=== PATIENT | male | born 1950 | race Caucasian/White ===

== ENCOUNTER 2019-02-28 07:11 | Observation (INO) | payer OTHER ==
[2019-02-28 08:42] LABS: ADD MAN DIFF? NO
[2019-02-28 08:45] LABS: WHITE BLOOD COUNT 5.7 10^3/ul (4.8-10.8)
[2019-02-28 08:45] LABS: BASOPHIL # 0.1 10^3/ul (0.0-0.1); BASOPHILS % 0.9 % (0.0-2.0); EOSINOPHILS # 0.1 10^3/ul (0.0-0.5); EOSINOPHILS % 1.2 % (0.0-7.0); HEMATOCRIT 43.8 % (42.0-52.0); HEMOGLOBIN 14.2 g/dl (14.0-18.0); LYMPHOCYTES # 1.6 10^3/ul (0.8-2.9); LYMPHOCYTES % 28.4 % (15.0-51.0); MEAN CORPUSCULAR HEMOGLOBIN 28.5 pg (29.0-33.0); MEAN CORPUSCULAR HGB CONC 32.4 g/dl (32.0-37.0); MEAN PLATELET VOLUME 10.6 fl (7.4-10.4); MONOCYTE # 0.4 10^3/ul (0.3-0.9); MONOCYTES % 6.5 % (0.0-11.0); NEUTROPHIL # 3.6 10^3/ul (1.6-7.5); NEUTROPHILS % 62.6 % (39.0-77.0); PLATELET COUNT 163 10^3/UL (140-415); RED BLOOD COUNT 4.98 10^6/ul (4.70-6.10); RED CELL DISTRIBUTION WIDTH 13.2 % (11.5-14.5)
[2019-02-28 09:02] LABS: ANION GAP 7 (5-13); BLOOD UREA NITROGEN 20 mg/dl (7-20); CALCIUM 9.7 mg/dl (8.4-10.2); CARBON DIOXIDE 28 mmol/L (21-31); CHLORIDE 112 mmol/L (97-110); CHOL/HDL RATIO 7.1 RATIO; CHOLESTEROL 243 mg/dl (100-200); CREATININE 0.95 mg/dl (0.61-1.24); Estimated GFR > 60 mL/min (>60); GLUCOSE 107 mg/dl (70-220); HDL CHOLESTEROL 34 mg/dl (31-75); LDL CHOLESTEROL,CALCULATED 174 mg/dl; POTASSIUM 4.3 mmol/L (3.5-5.1); TRIGLYCERIDES 174 mg/dl (0-149)
[2019-02-28 09:03] LABS: INR 0.89; PROTIME 12.1 Sec (11.9-14.9); PT RATIO 0.9
[2019-02-28 09:04] LABS: PARTIAL THROMBOPLASTIN TIME 26.2 Sec (23.0-35.0)
[2019-02-28 09:09] LABS: SODIUM 147 mmol/L (135-144)
[2019-02-28] MEDS ORDERED: NITROGLYCERIN (IC) 100 MCG/ML INJ (09:15)
[2019-02-28] MEDS ORDERED: VERAPAMIL 5 MG INJ (09:15)
[2019-02-28] MEDS ORDERED: LIDOCAINE 1% (MDV) 20 ML INJ (09:15)
[2019-02-28] MEDS ORDERED: SOD CHLORIDE 0.9% 500 ML (09:15)
[2019-02-28] MEDS ORDERED: HEPARIN 1000 UNITS/ML 10 ML INJ (09:15)
[2019-02-28] MEDS ORDERED: FENTAnyl 50 MCG/ML VIAL (09:15)
[2019-02-28] MEDS ORDERED: IODIXANOL LOCM 100 ML BTL (09:15)
[2019-02-28] MEDS ORDERED: MIDAZOLAM 1 MG/ML 2 ML INJ (09:15)
[2019-02-28] MEDS ORDERED: ASPIRIN 325 MG TAB ×2 (10:53→11:29)
[2019-02-28] MEDS ORDERED: CLOPIDOGREL 300 MG TAB ×2 (10:53→11:30)
[2019-02-28] MEDS ORDERED: niCARdipine 25 MG INJ (11:07)
[2019-02-28] MEDS ORDERED: BIVALIRUDIN 250MG /NS 50 ML 50 ML IVPB (11:40)
[2019-02-28] MEDS ORDERED: ACETAMINOPHEN 325 MG TAB PO (12:00)
[2019-02-28] MEDS ORDERED: OXYCODONE/ACETAMINOPHEN (5/325) TAB PO (12:00)
[2019-02-28] MEDS ORDERED: morphine 2 MG INJ IV (12:00)
[2019-02-28] MEDS ORDERED: AL HYDROX/MG HYDROX/SIMETH 30 ML CUP PO (12:00)
[2019-02-28] MEDS ORDERED: ONDANSETRON 4 MG INJ IV (12:00)
[2019-02-28] MEDS: SOD CHLORIDE 0.9% 1,000 ML IV ×2 (16:41→22:29)
[2019-02-28] MEDS ORDERED: ZOLPIDEM 5 MG TAB PO (21:00)
[2019-03-01 05:05] LABS: ADD MAN DIFF? NO
[2019-03-01 05:13] LABS: WHITE BLOOD COUNT 6.8 10^3/ul (4.8-10.8)
[2019-03-01 05:13] LABS: BASOPHILS % 0.6 % (0.0-2.0); EOSINOPHILS # 0.1 10^3/ul (0.0-0.5); EOSINOPHILS % 0.9 % (0.0-7.0); HEMATOCRIT 42.6 % (42.0-52.0); HEMOGLOBIN 14.1 g/dl (14.0-18.0); LYMPHOCYTES # 1.1 10^3/ul (0.8-2.9); LYMPHOCYTES % 16.9 % (15.0-51.0); MEAN CORPUSCULAR HEMOGLOBIN 28.4 pg (29.0-33.0); MEAN CORPUSCULAR HGB CONC 33.1 g/dl (32.0-37.0); MEAN CORPUSCULAR VOLUME 85.7 fl (82.0-101.0); MEAN PLATELET VOLUME 10.8 fl (7.4-10.4); MONOCYTE # 0.4 10^3/ul (0.3-0.9); MONOCYTES % 6.1 % (0.0-11.0); NEUTROPHIL # 5.1 10^3/ul (1.6-7.5); NEUTROPHILS % 75.2 % (39.0-77.0); PLATELET COUNT 146 10^3/UL (140-415); RED BLOOD COUNT 4.97 10^6/ul (4.70-6.10); RED CELL DISTRIBUTION WIDTH 13.3 % (11.5-14.5)
[2019-03-01 05:38] LABS: ANION GAP 7 (5-13); BLOOD UREA NITROGEN 16 mg/dl (7-20); CARBON DIOXIDE 26 mmol/L (21-31); CHLORIDE 112 mmol/L (97-110); CREATININE 0.82 mg/dl (0.61-1.24); Estimated GFR > 60 mL/min (>60); GLUCOSE 102 mg/dl (70-220); POTASSIUM 4.2 mmol/L (3.5-5.1); SODIUM 145 mmol/L (135-144)
[2019-03-01] MEDS: CLOPIDOGREL 75 MG TAB PO (08:16)
[2019-03-01] MEDS: ASPIRIN (EC) 81 MG TAB PO (08:16)
[2019-03-01] MEDS ORDERED: ATORVASTATIN 40 MG TAB PO (21:00)
== END 2019-03-01 11:50 | disposition home or self-care (01) ==
LOC: CCL 07:11 → SDS 07:11 → CCL 03-01 05:10 → 6WM 03-01 05:10 → ICU 11:50
DX: I25.10 Atherosclerotic heart disease of native coronary artery without angina pectoris (principal); I25.82 Chronic total occlusion of coronary artery; Z95.5 Presence of coronary angioplasty implant and graft; I10 Essential (primary) hypertension; E78.5 Hyperlipidemia, unspecified
CPT/HCPCS: 71045; 80048; 80061; 85025; 85610; 85730; 92943; 92978; 93005; 93458; G0378